=== PATIENT | female | born 2000 | race Two or more races ===

== ENCOUNTER 2022-06-05 13:50 | Emergency (ER) | payer OTHER ==
[~2022-06-05] VITALS: Ht 170.2 cm; Wt 77.1 kg
== END 2022-06-05 19:52 | disposition home or self-care (01) ==
LOC: EMR PED 13:50
DX: G44.309 Post-traumatic headache, unspecified, not intractable (principal); M25.561 Pain in right knee

== ENCOUNTER 2022-12-15 12:36 | Emergency (ER) | payer OTHER ==
[~2022-12-15] VITALS: Ht 167.6 cm; Wt 79.4 kg
== END 2022-12-15 14:43 | disposition home or self-care (01) ==
LOC: ER 12:36
DX: L56.8 Other specified acute skin changes due to ultraviolet radiation (principal)